=== PATIENT | male | born 1970 | race Caucasian/White ===

== ENCOUNTER 2023-02-16 13:33 | Emergency (ER) | payer OTHER ==
[~2023-02-16] VITALS: Ht 167.6 cm; Wt 81.6 kg
[2023-02-16 14:11] VITALS: BP 148/75; TEMP 98.7; O2SAT 100
[2023-02-16] MEDS ORDERED: GABA300C PO (14:31)
== END 2023-02-16 15:00 | disposition home or self-care (01) ==
LOC: ER 13:50
DX: E11.40 Type 2 diabetes mellitus with diabetic neuropathy, unspecified (principal)